=== PATIENT | female | born 1950 | race Caucasian/White ===

== ENCOUNTER 2020-11-03 12:35 | Emergency (ER) | payer MEDICARE, OTHER ==
[2020-11-03 12:46] VITALS: BP 142/82; PULSE 95
[2020-11-03] MEDS ORDERED: Ketorolac 30 MG/ML SDV IM ONE (13:06)
[2020-11-03] MEDS ORDERED: Orphenadrine 100 MG Tab.ER PO ONE (13:06)
--- NOTE | 2020-11-03 13:27 | EDM.PDOC ---
ED HPI GENERAL MEDICAL PROBLEM - General Chief Complaint: Upper Extremity Injury/Pain Stated Complaint: PAIN IN ARM Time Seen by Provider: 11/03/20 12:52 Source of Information: Reports: Patient, RN Notes Reviewed History Limitations: Reports: No Limitations - History of Present Illness INITIAL COMMENTS - FREE TEXT/NARRATIVE: Patient is a 70-year-old female who presents to the ER for the evaluation of her left arm/neck pain. Notes this has been present for about 2 days now, she states that seem to worsen a little bit yesterday, and it was pretty extreme this morning. Notes that it seems to worsen with range of motion, notes she can even lift her arm up to put a shirt on for the most part without it hurting too bad. She does note that she has been under quite an immense amount of stress over the last few days as well. She has a mother dying from COVID-19 in [facility] along with other life stressors. She has been using ice and heat to the area, with little benefit. She has not tried chiropractic services. Notes this is a sharp stabbing pain, that seems to start in the left side of her neck, and travels down to her middle left arm. Not having any chest pain, shortness of breath, nausea/vomiting/diarrhea. States that she has been using some leftover hydrocodone tablets that she has had from prior dental issues, her last dose was around 9 AM, she states that that seemed to help relieve some of the pain so she could sleep last night. Patient further denies any trauma to the area. Left Shoulder Pain Score (Numeric/FACES): 5 - Related Data Allergies Allergy/AdvReac Type Severity Reaction Status Date / Time erythromycin base AdvReac Severe vomitting/stomach Verified 11/03/20 12:46 arreguin morphine AdvReac Severe vomitting/stomach Verified 11/03/20 12:46 arreguin Home Meds: Home Meds Aspirin 81 mg PO BRK 08/14/14 [History] Multivitamin [Daily Multiple Vitamin] 1 tab PO DAILY 08/14/14 [History] Simvastatin [Zocor] 20 mg PO DAILY 08/14/14 [History] Acetaminophen/oxyCODONE [Percocet 325-5 MG] 2 tab PO Q4H PRN #20 tablet 08/19/14 [Rx] Orphenadrine [Norflex] 100 mg PO BID PRN #20 tab 11/03/20 [Rx] amLODIPine [Norvasc] 5 mg PO DAILY 11/03/20 [History] predniSONE 20 mg PO ASDIRECTED #15 tab 11/03/20 [Rx] Past Medical History Cardiovascular History: Reports: High Cholesterol, Hypertension Other Genitourinary History: Pt denies - Past Surgical History GI Surgical History: Reports: Appendectomy, Hernia Repair/Other Female Surgical History: Reports: Hysterectomy, Other (See Below) Other Female Surgeries/Procedures: pelvic floor reconstruction Social & Family History - Tobacco Use Tobacco Use Status *Q: Never Tobacco User Second Hand Smoke Exposure: No - Recreational Drug Use Recreational Drug Use: No Review of Systems - Review of Systems Review Of Systems: Comprehensive ROS is negative, except as noted in HPI. ED EXAM, GENERAL - Physical Exam Exam: See Below Exam Limited By: No Limitations General Appearance: Alert, WD/WN, No Apparent Distress Neck: Normal Inspection, Supple, Non-Tender, Other (muscle spasm noted to left posterior neck.) Respiratory/Chest: No Respiratory Distress, Lungs Clear, Normal Breath Sounds, No Accessory Muscle Use, Chest Non-Tender Cardiovascular: Normal Peripheral Pulses, Regular Rate, Rhythm, No Edema Extremities: Normal Inspection, Normal Capillary Refill, Limited Range of Motion (Of left arm due to pain. States it is more painful to lift her arm directly in front of her body, or away from her body as well.) Neurological: Alert, Oriented, Normal Cognition, No Motor/Sensory Deficits Psychiatric: Normal Affect, Normal Mood Skin Exam: Warm, Dry, Intact, Normal Color, No Rash #1 Interpretation EKG Date: 11/03/20 Time: 13:36 Rhythm: NSR Rate (Beats/Min): 80 [place]: Normal P-Wave: Present QRS: Normal ST-T: Normal QT: Normal EKG Interpretation Comments: No obvious ischemia or acute ST changes noted, reviewed by myself and Dr. Chappell. Course - Vital Signs Last Recorded V/S: Last Vital Signs Temp 97.1 F 11/03/20 12:42 Pulse 95 11/03/20 12:42 Resp 16 11/03/20 12:42 BP 142/82 H 11/03/20 12:42 Pulse Ox 95 11/03/20 12:42 - Orders/Labs/Meds Orders: Active Orders 24 hr Category Date Time Status EKG Documentation Completion [RC] STAT Care 11/03/20 12:51 Ordered Labs: Laboratory Tests 11/03/20 11/03/20 Range/Units 13:17 13:17 WBC 9.36 (3.98-10.04) K/mm3 RBC 4.97 (3.98-5.22) M/mm3 Hgb 13.9 (11.2-15.7) gm/dl Hct 42.0 (34.1-44.9) % MCV 84.5 (79.4-94.8) fl MCH 28.0 (25.6-32.2) pg MCHC 33.1 (32.2-35.5) g/dl RDW Std Deviation 40.6 (36.4-46.3) fL Plt Count 269 (182-369) K/mm3 MPV 8.8 L (9.4-12.3) fl Neut % (Auto) 70.4 (34.0-71.1) % Lymph % (Auto) 17.9 L (19.3-51.7) % [place] % (Auto) 10.3 (4.7-12.5) % Eos % (Auto) 0.9 (0.7-5.8) Baso % (Auto) 0.3 (0.1-1.2) % Neut # (Auto) 6.59 H (1.56-6.13) K/mm3 Lymph # (Auto) 1.68 (1.18-3.74) K/mm3 [place] # (Auto) 0.96 H (0.24-0.36) K/mm3 Eos # (Auto) 0.08 (0.04-0.36) K/mm3 Baso # (Auto) 0.03 (0.01-0.08) K/mm3 Sodium 142 (136-145) mEq/L Potassium 4.1 (3.5-5.1) mEq/L Chloride 104 (98-107) mEq/L Carbon Dioxide 28 (21-32) mEq/L Anion Gap 14.1 (5-15) BUN 22 H (7-18) mg/dL Creatinine 0.7 (0.55-1.02) mg/dL Est Cr Clr Drug Dosing 66.42 mL/min Estimated GFR (MDRD) > 60 (>60) mL/min BUN/Creatinine Ratio 31.4 H (14-18) Glucose 105 H (70-99) mg/dL Calcium 8.4 L (8.5-10.1) mg/dL Total Bilirubin 0.3 (0.2-1.0) mg/dL AST 11 L (15-37) U/L ALT 32 (14-59) U/L Alkaline Phosphatase 78 (46-116) U/L Troponin I < 0.017 (0.00-0.056) ng/mL Total Protein 7.4 (6.4-8.2) g/dl Albumin 3.6 (3.4-5.0) g/dl Globulin 3.8 gm/dL Albumin/Globulin Ratio 1.0 (1-2) Meds: Medications Discontinued Medications Generic Name Dose Route Start Last Admin Trade Name Freq PRN Reason Stop Dose Admin Ketorolac Tromethamine 30 mg 11/03/20 13:06 11/03/20 13:22 Ketorolac 30 Mg/Ml Sdv IM 11/03/20 13:07 30 mg ONETIME ONE Administration Orphenadrine Citrate 100 mg 11/03/20 13:06 11/03/20 13:21 Orphenadrine 100 Mg Tab.Er PO 11/03/20 13:07 100 mg ONETIME ONE Administration - Re-Assessments/Exams Free Text/Narrative Re-Assessment/Exam: 11/03/20 13:18 Patient presents to the ER for the evaluation of her left arm pain. We will go ahead and get EKG, and basic labs to rule out cardiac etiology however this is most likely musculoskeletal in nature she will be given Toradol, and Norflex as well for management. 11/03/20 13:59 Labs have resulted, and are unremarkable, EKG also has normal findings. We will go ahead and reassess the patient, and try to get her home with general recommendations, muscle relaxers and possibly a course of steroids for suspected nerve involvement causing left arm/neck pain. Departure - Departure Time of Disposition: 14:06 Disposition: Home, Self-Care 01 Condition: Good Clinical Impression: Left arm pain, Cervical radicular pain - Discharge Information *PRESCRIPTION DRUG MONITORING PROGRAM REVIEWED*: No *COPY OF PRESCRIPTION DRUG MONITORING REPORT IN PATIENT [place]: No Instructions: Cervical Radiculopathy Referrals: María Elena Szymanski NP [Primary Care Provider] - Forms: ED Department Discharge Additional Instructions: You have been evaluated in the ED for your left neck/arm pain. EKG and laboratory evaluation done at today's visit are unremarkable for any cardiac etiology of your pain. This is most likely musculoskeletal in etiology. You were given an injection of Toradol, and a tablet of Norflex for management for today's purposes and this seemed to help relieve most of your pain. Please use ice or heat as tolerated to the affected area. You may take Tylenol 500 mg q6 hrs for pain relief. Please do so until you have a tolerable level of pain with activity. Do not exceed 4000mg Tylenol in a 24 hour time period. You were given a prescription for 2 different medications, 1 a muscle relaxer, Norflex-1 tab 2 times a day as needed for ongoing muscle spasms. And a course of prednisone for suspected nerve involvement causing some nerve pain down your arm. Dosing will be 1 tablet 2 times a day for the next 5 days, and then 1 tablet for the last 5 days. This medication was electronically sent to the [place] pharmacy located in the [place]. Please follow-up with your regular provider, by the end of this week, or early next week if your symptoms do not seem to be improving. Please note that the medications given at today's visit, can take up to 48 hours to start providing benefit. So if you are not feeling much better by Sunday afternoon, you should probably get seen by a another medical provider for ongoing management. Please return to ED if your symptoms should change or worsen. Sepsis Event Note (ED) - Evaluation Sepsis Screening Result: No Definite Risk - Focused Exam Vital Signs: Vital Signs Temp Pulse Resp BP Pulse Ox 11/03/20 12:42 97.1 F 95 16 142/82 H 95 - My Orders Last 24 Hours: My Active Orders 11/03/20 12:51 EKG Documentation Completion [RC] STAT - Assessment/Plan Last 24 Hours: My Active Orders 11/03/20 12:51 EKG Documentation Completion [RC] STAT
== END 2020-11-03 14:22 | disposition home or self-care (01) ==
LOC: JD.ED 12:35
DX: M54.12 Radiculopathy, cervical region (principal); M79.602 Pain in left arm; E78.00 Pure hypercholesterolemia, unspecified; I10 Essential (primary) hypertension; Z88.5 Allergy status to narcotic agent; Z88.1 Allergy status to other antibiotic agents; Z79.82 Long term (current) use of aspirin
CPT/HCPCS: 36415; 80053; 84484; 85025; 93005; 96372; 99283; A9270; J1885; 93010